=== PATIENT | male | born 1935 | race Caucasian/White ===

== ENCOUNTER 2017-12-09 02:13 | Emergency (ER) | payer MEDICARE, BC ==
[~2017-12-09] VITALS: Ht 177.8 cm; Wt 72.6 kg
[2017-12-09 03:23] LABS: Basophils # (auto) 0.1 uL; Eosinophils # (auto) 0.3 uL; Eosinophils % (auto) 3.5 % (0.0-7.0); Hematocrit 39.5 % (41.0-53.0); Hemoglobin 13.2 g/dL (13.5-17.5); Lymphocytes # (auto) 0.8 uL; Lymphocytes % (auto) 10.7 % (10.0-50.0); Mean Corpuscular Hemoglobin 30.4 pg (28.0-32.0); Mean Corpuscular Hgb Conc. 33.4 g/dL (32.0-36.0); Mean Corpuscular Volume 91.2 fL (80.0-100.0); Monocytes # (auto) 0.5 uL; Monocytes % (auto) 6.2 % (0.0-12.0); Neutrophils # (auto) 5.8 uL; Neutrophils % (auto) 78.6 % (37.0-80.0); Platelet Count (auto) 172 10^3/uL (140-450); Red Blood Cells 4.33 10^6/uL (4.5-5.90); Red Cell Distribution Width 13.8 % (11.8-14.3); White Blood Cell 7.4 10^3/uL (4.4-10.8)
[2017-12-09 03:40] LABS: Partial Thromboplastin Time 26.4 sec (23.78-33.04); Prothrombin Time 10.7 sec (9.27-12.13)
[2017-12-09 03:44] LABS: Albumin 3.2 g/dL (3.4-5.0); BUN/Creatinine Ratio 10.1; Calcium 8.5 mg/dL (8.5-10.1)
[2017-12-09 03:49] LABS: Bilirubin, Total 0.4 mg/dL (0.2-1.0); Total Protein 6.6 g/dL (6.4-8.2)
[2017-12-09 08:33] LABS: Urine Bacteria NONE SEEN /hpf (None Seen); Urine Blood Negative /uL (Negative); Urine Hyaline Cast FEW /lpf (0 - 2); Urine Mucus FEW (None Seen); Urine Specific Gravity 1.022 (1.001-1.035); Urine WBC 1 /hpf (0 - 3)
[2017-12-09 14:58] VITALS: BP 139/83
== END 2017-12-09 14:17 | disposition home or self-care (01) ==
LOC: EDBD 02:13 → ER 02:17
DX: J44.9 Chronic obstructive pulmonary disease, unspecified (principal); R40.0 Somnolence; F17.210 Nicotine dependence, cigarettes, uncomplicated; Z90.49 Acquired absence of other specified parts of digestive tract
CPT/HCPCS: 36415; 71045; 80053; 81001; 84484; 85025; 85610; 85730; 93005

== ENCOUNTER 2018-12-16 12:32 | Inpatient (IN) | payer MEDICARE, OTHER | END 2018-12-31 19:11 | disposition hospice, home (50) | LOC: DOU IN ICU 12-25 16:20 → ER 12:32 → ICU WEST 12:33 | PROC: 5A1945Z Respiratory Ventilation, 24-96 Consecutive Hours (ICD-10-PCS; principal; ~2018-12-16) | PROC: 0BH17EZ Insertion of Endotracheal Airway into Trachea, Via Natural or Artificial Opening (ICD-10-PCS; ~2018-12-16) | PROC: 0T9B70Z Drainage of Bladder with Drainage Device, Via Natural or Artificial Opening (ICD-10-PCS; ~2018-12-16) | PROC: 05HM33Z Insertion of Infusion Device into Right Internal Jugular Vein, Percutaneous Approach (ICD-10-PCS; ~2018-12-16) | DX: A41.9 Sepsis, unspecified organism (principal); R65.21 Severe sepsis with septic shock; J96.21 Acute and chronic respiratory failure with hypoxia; J18.9 Pneumonia, unspecified organism; I50.33 Acute on chronic diastolic (congestive) heart failure; N39.0 Urinary tract infection, site not specified; E87.2 Acidosis; J44.1 Chronic obstructive pulmonary disease with (acute) exacerbation; D68.69 Other thrombophilia; R57.9 Shock, unspecified; E44.0 Moderate protein-calorie malnutrition; J44.9 Chronic obstructive pulmonary disease, unspecified; J45.998 Other asthma; Z99.81 Dependence on supplemental oxygen; G20 Parkinson's disease; R60.0 Localized edema; Z90.49 Acquired absence of other specified parts of digestive tract; Z66 Do not resuscitate; I10 Essential (primary) hypertension; M85.80 Other specified disorders of bone density and structure, unspecified site; D69.6 Thrombocytopenia, unspecified; I48.2 Chronic atrial fibrillation; Z79.01 Long term (current) use of anticoagulants; I48.0 Paroxysmal atrial fibrillation ==